=== PATIENT | female | born 1950 | race Caucasian/White ===

== ENCOUNTER → 2020-11-04 | Outpatient (CLI) | payer MEDICARE, BC ==
[~2020-11-04] MED LIST: ATORVASTATIN CA10 MG PO; CARDURA2 MG PO; CELEXA40 MG PO; CLONIDINE HCL0.1 MG PO; DILTIAZEM ER360 MG PO; FERREX 150150 MG PO; GLUCOTROL XL 22.5 MG PO; ISOSORBIDE MONO30 MG PO; LANTUS SOL100 UNIT/1 SQ; METOPROLOL TART25 MG PO; NEXIUM40 MG PO; PANTOPRAZOLE SO20 MG PO; ROCALTROL0.25 MCG PO; ST. JOSEPH ASPI81 M1 PO; TRULICITY0.75 MG/0. SQ; ZOFRAN ODT 4 MG4 MG PO
== END ==
LOC: NM 09:28
DX: R07.89 Other chest pain (principal); E11.21 Type 2 diabetes mellitus with diabetic nephropathy; E78.5 Hyperlipidemia, unspecified; I10 Essential (primary) hypertension; R94.39 Abnormal result of other cardiovascular function study
CPT/HCPCS: 78452; 93017; A9502; J2785

== ENCOUNTER → 2020-11-16 | Outpatient (CLI) | payer MEDICARE, BC | LOC: US 11-08 08:30 | DX: R10.11 Right upper quadrant pain (principal); R10.13 Epigastric pain; E11.9 Type 2 diabetes mellitus without complications; K80.20 Calculus of gallbladder without cholecystitis without obstruction | CPT/HCPCS: 76705 ==

== ENCOUNTER 2020-12-09 18:38 | Emergency (ER) | payer MEDICARE, BC ==
[2020-12-09 19:51] LABS: HEMOGLOBIN 10.2 gm/dl (12.3-15.3); RED BLOOD COUNT 3.43 M/UL (4.00-5.10); WHITE BLOOD COUNT 8.8 K/UL (4.5-11.0)
[2020-12-09 20:18] LABS: BUN/CREATININE RATIO 9 (0-10)
[2020-12-09] MEDS ORDERED: PANTOPRAZOLE SO20 MG PO (21:14)
[2020-12-09] MEDS ORDERED: ZOFRAN ODT 4 MG4 MG PO (21:14)
[2021-01-13] MEDS ORDERED: ST. JOSEPH ASPI81 M1 PO (06:43)
[2021-01-13] MEDS ORDERED: ATORVASTATIN CA10 MG PO (06:43)
[2021-01-13] MEDS ORDERED: CELEXA40 MG PO (06:44)
[2021-01-13] MEDS ORDERED: CLONIDINE HCL0.1 MG PO (06:44)
[2021-01-13] MEDS ORDERED: ROCALTROL0.25 MCG PO (06:44)
[2021-01-13] MEDS ORDERED: CARDURA2 MG PO (06:45)
[2021-01-13] MEDS ORDERED: DILTIAZEM ER360 MG PO (06:45)
[2021-01-13] MEDS ORDERED: NEXIUM40 MG PO (06:45)
[2021-01-13] MEDS ORDERED: ISOSORBIDE MONO30 MG PO (06:46)
[2021-01-13] MEDS ORDERED: LANTUS SOL100 UNIT/1 SQ (06:46)
[2021-01-13] MEDS ORDERED: GLUCOTROL XL 22.5 MG PO (06:46)
[2021-01-13] MEDS ORDERED: FERREX 150150 MG PO (06:46)
[2021-01-13] MEDS ORDERED: TRULICITY0.75 MG/0. SQ (06:47)
[2021-01-13] MEDS ORDERED: METOPROLOL TART25 MG PO (06:47)
== END 2020-12-09 21:26 | disposition home or self-care (01) ==
LOC: ER1 18:38
PROVIDERS: Family Medicine
DX: R07.9 Chest pain, unspecified (principal); E11.22 Type 2 diabetes mellitus with diabetic chronic kidney disease; E11.649 Type 2 diabetes mellitus with hypoglycemia without coma; N18.9 Chronic kidney disease, unspecified; Z79.01 Long term (current) use of anticoagulants; Z88.1 Allergy status to other antibiotic agents
CPT/HCPCS: 71045; 80053; 82550; 82553; 83690; 83874; 84439; 84443; 84484; 85025; 93005; 96374; 99285; J2405

== ENCOUNTER → 2021-01-09 | Outpatient (CLI) | payer MEDICARE | LOC: LBRF 15:51 | DX: Z01.812 Encounter for preprocedural laboratory examination (principal); Z20.822 Contact with and (suspected) exposure to COVID-19 | CPT/HCPCS: U0003 ==

== ENCOUNTER → 2021-01-13 | Day surgery (SDC) | payer MEDICARE, BC | END | disposition home or self-care (01) | LOC: OR 06:20 | DX: R10.13 Epigastric pain (principal); K44.9 Diaphragmatic hernia without obstruction or gangrene; I12.9 Hypertensive chronic kidney disease with stage 1 through stage 4 chronic kidney disease, or unspecified chronic kidney disease; E11.22 Type 2 diabetes mellitus with diabetic chronic kidney disease; N18.4 Chronic kidney disease, stage 4 (severe); K80.20 Calculus of gallbladder without cholecystitis without obstruction; F32.9 Major depressive disorder, single episode, unspecified; F41.9 Anxiety disorder, unspecified; E78.5 Hyperlipidemia, unspecified; K21.9 Gastro-esophageal reflux disease without esophagitis; G47.33 Obstructive sleep apnea (adult) (pediatric); M81.0 Age-related osteoporosis without current pathological fracture; Z86.010 Personal history of colon polyps; Z88.1 Allergy status to other antibiotic agents; Z79.82 Long term (current) use of aspirin; Z79.4 Long term (current) use of insulin; Z79.899 Other long term (current) drug therapy | CPT/HCPCS: 82962; J2704; J7030 ==

== ENCOUNTER → 2021-04-12 | Outpatient (CLI) | payer MEDICARE, BC ==
[~2021-04-12] VITALS: Ht 157.5 cm; Wt 72.1 kg
== END ==
LOC: OPSV 10:39
DX: N18.4 Chronic kidney disease, stage 4 (severe) (principal); D50.9 Iron deficiency anemia, unspecified; T45.4X5A Adverse effect of iron and its compounds, initial encounter
CPT/HCPCS: 96365; J1439; J7030

== ENCOUNTER → 2021-04-19 | Outpatient (CLI) | payer MEDICARE, BC ==
[~2021-04-19] VITALS: Ht 157.5 cm; Wt 72.1 kg
== END ==
LOC: OPSV 11:00
DX: D50.9 Iron deficiency anemia, unspecified (principal); T45.4X5A Adverse effect of iron and its compounds, initial encounter
CPT/HCPCS: 96365; J1439; J7030